=== PATIENT | female | born 1990 | race Caucasian/White ===

== ENCOUNTER 2019-01-21 16:47 | Emergency (ER) | payer SELFPAY ==
[2019-01-21 16:58] VITALS: TEMP 98.6; BMI 30.2
[2019-01-21] MEDS ORDERED: ALBUTEROL SO4 0.083% IH SOL 2.5 MG/3 ML VIAL.NEB. NEB ONE ×3 (17:49→18:05)
--- NOTE | 2019-01-21 17:52 | PDOC ---
History of Present Illness - General Chief Complaint: Asthma Stated Complaint: Asthma Time Seen by Provider: 01/21/19 17:35 History Source: Patient Exam Limitations: No Limitations - History of Present Illness Initial Comments: 01/21/19 17:46 Pt is a 28 yo F with PMHx of asthma (no hx of intubation or hospitalizations) who presents to the ED due to asthma exacerbation. Pt states that she has had wheezing and shortness of breath since 9:00 AM this morning. She states that she is allergic to dust and pollen and thinks that her asthma exacerbation is caused by her allergies. Pt has tried using her home inhalers x2 without symptomatic relief. Pt also c/ o nonproductive cough and nose congestion. LMP was 01/06/19. PMH: Asthma PSH: Denies Meds: Albuterol PRN ALL: NKDA Social: Denies tobacco use, drug use, FH: non contributory ROS: GENERAL/CONSTITUTIONAL: No: fever, chills HEAD, EYES, EARS, NOSE AND THROAT: No: change in vision, ear pain, discharge, sore throat, throat swelling. CARDIOVASCULAR: No: chest pain, lightheadedness, palpitations, syncope RESPIRATORY: Yes: cough, shortness of breath, wheezing No: hemoptysis, stridor. GASTROINTESTINAL: No: nausea, vomiting, diarrhea, abdominal pain GENITOURINARY: No: dysuria, hematuria, frequency, urgency MUSCULOSKELETAL: No: back pain, neck pain, joint pain, muscle swelling or pain SKIN AND BREASTS: No: lesions, pallor, rash or easy bruising. NEUROLOGIC: No: headache, vertigo, paresthesias, weakness PE: GENERAL: The patient is in no acute distress, appears breathless. HEAD: Normal EYES: PERRLA, EOMI, sclera anicteric, conjunctiva clear. ENT: Ears normal, nares patent, oropharynx clear without exudates. Moist mucous membranes. NECK: Normal range of motion, supple without lymphadenopathy LUNGS: Rhoncherous breath sounds bilaterally, (+) transmitted upper airway noise HEART:Regular rate and rhythm, normal S1 and S2 without murmur, rub or gallop. ABDOMEN: Soft, nontender, normoactive bowel sounds. No guarding, no rebound. EXTREMITIES: Normal range of motion, no edema. NEUROLOGICAL: Cranial nerves II through XII grossly intact. Normal speech. No focal neurological deficits. MUSCULOSKELETAL: Back non-tender to palpation SKIN: Warm, Dry, normal turgor, no rashes or lesions noted. 01/21/19 17:52 01/21/19 17:59 01/21/19 18:18 01/21/19 18:22 Past History - Past Medical History Allergies/Adverse Reactions: Allergies Allergy/AdvReac Type Severity Reaction Status Date / Time No Known Allergies Allergy Verified 01/19/13 20:41 Home Medications: Ambulatory Orders Albuterol Sulfate Inhaler - [Ventolin Hfa *Inhaler*] 1 - 2 inh IH Q4H PRN #1 inhaler 01/19/13 Albuterol Sulfate Inhaler - [Ventolin Hfa *Inhaler*] 1 - 2 inh IH QID PRN #0 inh 01/19/13 Methylprednisolone [Medrol Dose Jr] 4 mg PO ASDIR #21 tablet 01/19/13 Albuterol 0.083% Nebulizer Kari [Ventolin 0.083% Nebulizer Soln -] 1 neb NEB TID PRN #30 vial 01/21/19 Loratadine [Claritin] 10 mg PO DAILY PRN #30 tablet 01/21/19 Methylprednisolone [Medrol Dose Jr] 4 mg PO ASDIR #21 tablet 01/21/19 Asthma: Yes COPD: No - Immunization History TDAP Vaccination: Yes Immunization Up to Date: Yes - Suicide/Smoking/Psychosocial Hx Smoking Status: No Smoking History: Never smoked Number of Cigarettes Smoked Daily: 0 Information on smoking cessation initiated: No Hx Alcohol Use: No Drug/Substance Use Hx: No *Physical Exam - Vital Signs Last Vital Signs Temp Pulse Resp BP Pulse Ox 98.6 F 102 H 20 102/75 100 01/21/19 16:48 01/21/19 16:48 01/21/19 16:48 01/21/19 16:48 01/21/19 16:48 Medical Decision Making - Medical Decision Making 01/21/19 18:21 This is a 28 yo F presenting with a complaint of shortness of breath and wheezing 2/2 exposure to dust No associated chest pain No fevers Will do HCG Albuterol CXR 01/21/19 18:23 Pt reports her symptoms are definitely due to dust She ran out of her albuterol inhaler liquid Will forego the xray Will discharge with Albuterol and prednisone Clinical impression Allergic rhinitis, initial presentation Asthma exacerbation, initial presentation *DC/Admit/Observation/Transfer Diagnosis at time of Disposition: Asthma Qualifiers: Asthma severity: mild Asthma persistence: intermittent Asthma complication type : with acute exacerbation Qualified Code(s): J45.21 - Mild intermittent asthma with (acute) exacerbation - Discharge Dispostion Disposition: HOME Condition at time of disposition: Stable Decision to Admit order: No - Referrals - Patient Instructions Printed Discharge Instructions: Asthma -- Adult Additional Instructions: Ms Leary Thanks so much for coming in to the ER today Please try as much as possible to avoid the things that trigger your asthma Please use medications as prescribed Return to the ER for any other concerns or complaints - Post Discharge Activity Forms/Work/School Notes: Back to Work
[2019-01-21] MEDS ORDERED: LORATADINE 10 MG TABLET PO ONE (17:58)
[2019-01-21] MEDS ORDERED: LORATADINE 10 MG TABLET ONE (18:23)
[2019-01-21 18:42] VITALS: BP 129/70; PULSE 88
== END 2019-01-21 18:45 | disposition home or self-care (01) ==
LOC: FER 16:47
PROC: 3E0F7GC Introduction of Other Therapeutic Substance into Respiratory Tract, Via Natural or Artificial Opening (ICD-10-PCS; principal; 2019-01-21)
DX: J45.21 Mild intermittent asthma with (acute) exacerbation (principal)
CPT/HCPCS: 84703; 99282-25

== ENCOUNTER 2019-02-22 04:30 | Emergency (ER) | payer SELFPAY ==
--- NOTE | 2019-02-22 04:33 | PDOC ---
History of Present Illness - General Chief Complaint: Asthma Stated Complaint: SOB Time Seen by Provider: 02/22/19 04:32 - History of Present Illness Initial Comments: 02/22/19 04:41 This 28-year-old woman with a history of asthma triggered by seasonal and environmental allergies presents with several hour history of wheezing and difficulty breathing. Patient states that flareup began during the evening last night (approximately 10 hours prior to presentation). The patient used her albuterol inhaler and shortness of breath improved. She awakened just prior to presentation with recurrent shortness of breath. She found that her albuterol inhaler was empty and she has no refills. She denies fever/cough/ upper respiratory symptoms. No history of asthma related hospitalization or intubation. Patient states that she does have a general medical doctor but was unable to make an appointment to have her inhaler refilled earlier this week. Past History - Past Medical History Allergies/Adverse Reactions: Allergies Allergy/AdvReac Type Severity Reaction Status Date / Time No Known Allergies Allergy Verified 01/19/13 20:41 Home Medications: Ambulatory Orders Albuterol 0.083% Nebulizer Kari [Ventolin 0.083% Nebulizer Soln -] 1 neb NEB TID PRN #30 vial 01/21/19 Albuterol Sulfate Inhaler - [Ventolin HFA Inhaler -] 1 - 2 inh PO Q4H PRN #1 inhaler 02/22/19 Asthma: Yes COPD: No - Immunization History TDAP Vaccination: Yes Immunization Up to Date: Yes - Psycho Social/Smoking Cessation Hx Smoking Status: No Smoking History: Never smoked Number of Cigarettes Smoked Daily: 0 Hx Alcohol Use: No Drug/Substance Use Hx: No Review of Systems - Review of Systems Able to Perform ROS?: Yes Comments:: 12 point review of systems is negative except for what is noted in the history of present illness *Physical Exam - Physical Exam Comments: GENERAL: Adult female, alert and oriented x3, appearing mildly short of breath but in no acute respiratory distress; speaking in full sentences HEAD: Normal with no signs of trauma. EYES: PERRLA, EOMI, sclera anicteric, conjunctiva clear. ENT: Ears normal, nares patent, oropharynx clear without exudates. Moist mucous membranes. NECK: Normal range of motion, supple without lymphadenopathy, JVD, or masses. LUNGS: Breath sounds equal, fair air exchange bilaterally; clear to auscultation bilaterally. No wheezes, and no crackles. HEART:Regular rate and rhythm, normal S1 and S2 without murmur, rub or gallop. ABDOMEN:.normal bowel sounds No guarding,tenderness or rebound.No masses No distention. EXTREMITIES: Normal range of motion, no edema. No clubbing or cyanosis. No erythema, or tenderness. NEUROLOGICAL: Cranial nerves II through XII grossly intact. Normal speech. No focal neurological deficits. MUSCULOSKELETAL: Back non-tender to palpation, no CVA tenderness SKIN: Warm, Dry, normal turgor, no rashes or lesions noted. ED Progress Note - Progress Note Progress Note: 02/22/19 04:46 This 28-year-old woman with a history of asthma related to environmental and seasonal allergies presents with several hour history of intermittent wheezing. No clear history of antecedent upper respiratory infection/fever. Earlier in the evening, her symptoms were adequately treated with her albuterol inhaler; she presents because the inhaler is now empty and she has no refills. Exam as noted above. Although wheezing not heard, air exchange is only fair. DuoNeb nebulizer treatment given 02/22/19 05:13 Reexamination after nebulizer treatment completed reveals excellent air exchange bilaterally and resolution of patient's shortness of breath. Patient will be discharged with albuterol inhaler prescription sent to her pharmacy. She should also continue Zyrtec daily as she has in the past for her seasonal/environmental allergic symptoms. She should plan on following up with her general medical doctor within the next 3 to 4 days. If she has persistent wheezing/shortness of breath or develops fever/productive cough, she should return to the ER. Discharge - Discharge Information Problems reviewed: Yes Clinical Impression/Diagnosis: Asthma Qualifiers: Asthma severity: mild Asthma persistence: intermittent Asthma complication type : uncomplicated Qualified Code(s): J45.20 - Mild intermittent asthma, uncomplicated Condition: Stable Disposition: HOME - Additional Discharge Information Prescriptions: Albuterol Sulfate Inhaler - [Ventolin HFA Inhaler -] 1 - 2 inh PO Q4H PRN #1 inhaler PRN Reason: Asthma - Follow up/Referral - Patient Discharge Instructions Patient Printed Discharge Instructions: Asthma -- Adult Additional Instructions: Albuterol inhaler 1 to 2 puffs every 4 hours as needed for wheezing or shortness of breath Continue Zyrtec daily as needed Follow-up with your doctor within the next 3 to 4 days Return to ER if you have persistent wheezing/shortness of breath or if you develop fever/severe cough - Post Discharge Activity
[2019-02-22] MEDS ORDERED: ALBUTEROL SO4 2.5/IPRATROPIUM 0.5 INH SOL 3 ML VIAL.NEB. NEB ONE ×2 (04:41)
[2019-02-22 05:05] VITALS: BP 117/69; PULSE 87; TEMP 98.1; BMI 30.2
== END 2019-02-22 05:15 | disposition home or self-care (01) ==
LOC: FER 04:30
PROC: 3E0F7GC Introduction of Other Therapeutic Substance into Respiratory Tract, Via Natural or Artificial Opening (ICD-10-PCS; principal; 2019-02-22)
DX: J45.20 Mild intermittent asthma, uncomplicated (principal)
CPT/HCPCS: 99282-25

== ENCOUNTER 2019-03-26 14:16 | Emergency (ER) | payer SELFPAY ==
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
[2019-03-26 15:36] LABS: BASO % 0.6 % (0-2.0); EOS % 0.8 % (0-4.5); HEMATOCRIT 39.1 % (32.4-45.2); HEMOGLOBIN 13.2 GM/dl (10.7-15.3); MCHC 33.7 g/dl (32.0-36.0); MEAN PLT VOLUME 9.2 fl (7.5-11.1); MONO % 5.1 % (3.8-10.2); NEUT % 73.5 % (42.8-82.8); PLATELET COUNT 391 K/MM3 (134-434); RBC 4.26 M/mm3 (3.60-5.2); WHITE BLOOD COUNT 7.1 K/mm3 (4.0-10.8)
[2019-03-26 15:44] LABS: ALBUMIN 4.7 g/dl (3.4-5.0); ALK PHOS 61 U/L (45-117); ANION GAP 7 MMOL/L (8-16); BILIRUBIN,TOTAL 0.6 mg/dl (0.2-1); CALCIUM 9.6 mg/dl (8.5-10); CHLORIDE 108 mmol/L (98-107); CO2 24 mmol/L (21-32); CREATININE 0.6 mg/dl (0.55-1.3); GLUCOSE,RANDOM 98 mg/dl (74-106); POTASSIUM 3.8 mmol/L (3.5-5.1); SGOT/AST 27 U/L (15-37); SGPT/ALT 31 U/L (13-61); SODIUM 139 mmol/L (136-145); TOT PROT 8.3 g/dl (6.4-8.2)
[2019-03-26 15:53] LABS: AMORP URATES 2+ /hpf (NONE SEEN)
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
[2019-03-26 18:26] LABS: EPITHELIAL CELLS FEW /hpf
[2019-03-26 19:16] VITALS: BP 134/76; PULSE 90; TEMP 98.3; BMI 29.0
== END 2019-03-26 17:36 | disposition home or self-care (01) ==
LOC: FER 14:16
DX: F41.8 Other specified anxiety disorders (principal); Z11.3 Encounter for screening for infections with a predominantly sexual mode of transmission; J45.909 Unspecified asthma, uncomplicated; Z91.013 Allergy to seafood
CPT/HCPCS: 36415; 80053; 80307; 81003; 81015; 84703; 85025; 86593; 87086; 87389; 87491; 87591; 99282-25

== ENCOUNTER 2019-04-29 23:51 | Emergency (ER) | payer OTHER ==
[2019-04-29] MEDS ORDERED: SODIUM CHLORIDE 1,000 ML IV ONE (23:59)
--- NOTE | 2019-04-30 | PDOC ---
History of Present Illness - General Chief Complaint: Vaginal Bleeding Stated Complaint: I THINK IM HAVING A MISCARRIAGE Time Seen by Provider: 04/29/19 23:53 History Source: Patient Exam Limitations: No Limitations - History of Present Illness Initial Comments: 04/30/19 00:00 This is a 28-year-old female who comes in complaining of some vaginal bleeding. Patient said she has been spotting for 3 days. Patient was here in the emergency department on Sunday with a small amount of spotting and then went to [facility] yesterday and had an ultrasound that did show a yolk sac with a pole. Patient said that this evening prior to coming in she started bleeding more heavily and passed a large clot. Patient is O+ Allergies: as per nursing notes Past Medical History: none Social history: Lives with family. No smoking. No alcohol. No illicit drugs. Surgical history: None General: No fevers or chills, no weakness, no weight loss HEENT: No change in vision. No sore throat,. No ear pain CardioVascular: no chest discomfort. No shortness of breath Respiratory:No cough, or wheezing. Gastrointestinal: no nausea, vomiting, diarrhea or constipation, No rectal bleeding Genitourinary: No dysuria, hematuria, or frequency Musculoskeletal: No joint or muscle pain or swelling Neurologic: No headache, vertigo, dizziness or loss of consciousness Psychiatric: nor depression Skin: No rashes or easy bruising Endocrine: no increased thirst or abnormal weight change Allergic: no skin or latex allergy All other systems reviewed and normal GENERAL: The patient is awake, alert, and fully oriented, in no acute distress. HEAD: Normal with no signs of trauma. EYES: Pupils equal, round and reactive to light, extraocular movements intact, sclera anicteric, conjunctiva clear. : There is moderate to small amount of blood in the vaginal vault, the office is closed, there is no adnexal tenderness or palpable adnexal masses EXTREMITIES:atraumatic, Normal range of motion, no edema. NEUROLOGICAL: Normal speech, normal gait. PSYCH: Normal mood, normal affect. SKIN: Warm, Dry, normal turgor, no rashes or lesions noted. 04/30/19 00:02 Assessment and plan: This is a 28-year-old female with vaginal bleeding who comes in for evaluation. will obtain hCG, labs and give patient some fluids and get an ultrasound. Ultrasound showed a gestational sac in the mid to lower uterine segment however there was no fall. Patient's beta hCG has declined from 4 days ago so this most likely is a spontaneous . Patient was advised of the findings and told to follow-up with her OB Past History - Past Medical History Allergies/Adverse Reactions: Allergies Allergy/AdvReac Type Severity Reaction Status Date / Time shellfish derived Allergy Severe Difficulty Verified 04/30/19 00:12 Breathing Home Medications: Ambulatory Orders Albuterol Sulfate Inhaler - [Ventolin Hfa Inhaler -] 1 - 2 inh PO Q4H 04/26/19 Asthma: Yes COPD: No Psychiatric Problems: Yes (anxiety depression) - Immunization History TDAP Vaccination: Yes Immunization Up to Date: Yes - Psycho Social/Smoking Cessation Hx Smoking Status: No Smoking History: Never smoked Number of Cigarettes Smoked Daily: 0 Hx Alcohol Use: Yes (SOCIAL. NO ALCOHOL SINCE BECOMING ) Drug/Substance Use Hx: No ED Treatment Course - LABORATORY CBC & Chemistry Diagram: 04/30/19 00:10 04/30/19 00:10 Discharge - Discharge Information Problems reviewed: Yes Clinical Impression/Diagnosis: Spontaneous Condition: Stable Disposition: HOME - Admission No - Follow up/Referral - Patient Discharge Instructions Additional Instructions: Call your OB in the morning and get an appointment to follow-up. Return to the emergency department immediately with ANY new, persistent or worsening symptoms. Continue any medications as previously prescribed by your physician. You should follow up with your primary doctor as soon as possible regarding today's emergency department visit. . Please make sure your doctor reviews the results of your emergency evaluation. Thank you for coming to the Emergency Department today for your care. It was a pleasure to see you today. Please note that your evaluation is INCOMPLETE until you follow-up with your doctor. - Post Discharge Activity Work/Back to School Note: Back to Work
[2019-04-30 00:05] VITALS: BP 124/77; PULSE 112; TEMP 99.5; BMI 30.3
[2019-04-30 00:46] LABS: BASO % 0.6 % (0-2.0); EOS % 7.4 % (0-4.5); HEMATOCRIT 37.6 % (32.4-45.2); HEMOGLOBIN 12.8 GM/dL (10.7-15.3); LYMPH % 16.9 % (8-40); MCH 31.4 pg (25.7-33.7); MCHC 34.1 g/dl (32.0-36.0); MEAN CELL VOLUME 92.3 fl (80-96); MEAN PLT VOLUME 9.8 fl (7.5-11.1); MONO % 8.6 % (3.8-10.2); NEUT % 66.5 % (42.8-82.8); PLATELET COUNT 347 K/MM3 (134-434); RBC 4.08 M/mm3 (3.60-5.2); RDW 12.8 % (11.6-15.6); WHITE BLOOD COUNT 6.7 K/mm3 (4.0-10.0)
[2019-04-30 01:22] LABS: ALBUMIN 4.1 g/dl (3.4-5.0); BILIRUBIN,TOTAL 0.3 mg/dL (0.2-1); BLOOD UREA NITROGEN 6.6 mg/dL (7-18); CALCIUM 9.1 mg/dL (8.5-10.1); CREATININE 0.7 mg/dL (0.55-1.3); POTASSIUM 3.9 mmol/L (3.5-5.1); TOT PROT 7.7 g/dl (6.4-8.2)
== END 2019-04-30 01:32 | disposition home or self-care (01) ==
LOC: FER 23:51
PROC: 3E0337Z Introduction of Electrolytic and Water Balance Substance into Peripheral Vein, Percutaneous Approach (ICD-10-PCS; principal; 2019-04-29)
DX: O03.9 Complete or unspecified spontaneous abortion without complication (principal); Z91.013 Allergy to seafood; F41.8 Other specified anxiety disorders
CPT/HCPCS: 36415; 76815-TC; 80053; 84702; 85025; 99282-25; J7030